=== PATIENT | male | born 1990 | race Caucasian/White ===

== ENCOUNTER 2018-03-26 14:30 | Emergency (ER) | payer OTHER ==
--- NOTE | 2018-03-26 14:58 | UC ---
Skin Complaint HPI - HPI Summary HPI Summary: 27 yo male presents with rash to left upper arm that he noticed today. He tells me he was bitten here by a tick about a week ago. Removed the tick himself but is unsure how long it was attached to him. Denies fever, chills, headache, joint pain. - History of Current Complaint Chief Complaint: [facility] Time Seen by Provider: 03/26/18 14:51 Stated Complaint: TICK BITE Hx Obtained From: Patient Onset/Duration: Sudden Onset Current Severity: None Pain Intensity: 0 - Allergy/Home Medications Allergies/Adverse Reactions: Allergies Allergy/AdvReac Type Severity Reaction Status Date / Time cefprozil [From Cefzil] Allergy Hives Verified 03/26/18 14:46 crustations Allergy Anaphylatic Uncoded 03/26/18 14:46 Shock Review of Systems Constitutional: Negative Skin: Rash Eyes: Negative ENT: Negative Respiratory: Negative Cardiovascular: Negative Gastrointestinal: Negative Neurovascular: Negative Musculoskeletal: Negative Neurological: Negative Psychological: Negative All Other Systems Reviewed And Are Negative: Yes PMH/Surg Hx/FS Hx/Imm Hx - Additional Past Medical History Additional PMH: None Previously Healthy: Yes - Surgical History Surgical History: None - Family History Known Family History: Positive: None - Social History Occupation: Employed Full-time Lives: With Family Alcohol Use: Occasionally Substance Use Type: None Smoking Status (MU): Never Smoked Tobacco Physical Exam - Summary Physical Exam Summary: GENERAL: NAD. WDWN. No pain distress. SKIN: Bull's eye rash left upper arm. No streaking, bleeding, or drainage. NECK: Supple. Nontender. No lymphadenopathy. CHEST: No accessory muscle use. Breathing comfortably and in no distress. CV: RRR. Without m/r/g. NEURO: Alert. CN II-XII grossly intact. PSYCH: Age appropriate behavior. Triage Information Reviewed: Yes Vital Signs: Initial Vital Signs Temp 97.7 F 03/26/18 14:42 Pulse 65 03/26/18 14:42 Resp 16 03/26/18 14:42 BP 102/55 03/26/18 14:42 Pulse Ox 100 03/26/18 14:42 Course/Dx - Course Course Of Treatment: Bull's eye rash s/p tick bite about a week ago. Discussed treatment vs lyme testing with pt and he elected to begin treatment now for lyme disease - Diagnoses Provider Diagnoses: Acute Lyme disease Discharge - Sign-Out/Discharge Documenting (check all that apply): Discharge/Admit/Transfer - Discharge Plan Condition: Stable Disposition: HOME Prescriptions: RX: DOXYcycline CAP(*) [DOXYcycline 100MG CAP(*)] 100 mg PO BID #42 cap Patient Education Materials: Lyme Disease (ED), Tick Bite (ED) Referrals: No Primary Care Phys,NOPCP [Primary Care Provider] - Additional Instructions: If you develop a fever, shortness of breath, chest pain, new or worsening symptoms - please call your PCP or go to the ED. - Billing Disposition and Condition Condition: STABLE Disposition: Home
== END 2018-03-26 15:07 | disposition home or self-care (01) ==
LOC: UCEAST 14:30
DX: A69.20 Lyme disease, unspecified (principal); Z88.1 Allergy status to other antibiotic agents
CPT/HCPCS: 99202; G0463